=== PATIENT | female | born 1985 | race Asian ===

== ENCOUNTER 2016-09-22 10:07 | Emergency (ER) | payer OTHER ==
[~2016-09-22] VITALS: Ht 162.6 cm; Wt 54.4 kg
== END 2016-09-22 11:10 | disposition home or self-care (01) ==
LOC: ED 10:07
DX: B02.9 Zoster without complications (principal)
CPT/HCPCS: 99282

== ENCOUNTER 2021-05-05 11:57 | Emergency (ER) | payer OTHER ==
[~2021-05-05] VITALS: Ht 162.6 cm; Wt 63.5 kg
[2021-05-05 12:39] LABS: PLATELET COUNT 187 K/uL (152-353)
[2021-05-05 12:45] LABS: POTASSIUM 3.4 mmol/L (3.6-5.2); SODIUM 135 mmol/L (136-145)
[2021-05-05 13:52] VITALS: BP 130/77; TEMP 98
== END 2021-05-05 13:52 | disposition home or self-care (01) ==
LOC: ED 11:57
PROVIDERS: Hospitalist
DX: N94.6 Dysmenorrhea, unspecified (principal); R10.2 Pelvic and perineal pain
CPT/HCPCS: 80053; 80307; 80320; 81000; 84702; 85027; 85610; 85730; 96360; 99284